=== PATIENT | female | born 1985 | race Two or more races ===

== ENCOUNTER → 2018-11-02 | Outpatient (CLI) | payer SELFPAY ==
--- NOTE | 2018-11-02 16:32 | RADIOLOGY REPORT (SQ) ---
EXAM DESCRIPTION: U/S [id number] TRNABD 1GES W/ODOP COMPLETED DATE/TIME: 11/02/2018 3:39 pm REASON FOR STUDY: Z34.81 ENCOUNTER FOR SUPRVSN OF NORMAL , FIRST TRIMESTER Z34.81 ENCOUNTE R FOR SUPRVSN OF NORMAL , FIRST TRIM COMPARISON: None. TECHNIQUE: Transabdominal static and realtime grayscale images acquired of the pelvis. Additional se lected spectral and color Doppler images recorded. All images stored on PACs. bHCG: Not available. CLINICAL DATES: 7 weeks 4 days LIMITATIONS: None. FINDINGS: FETUS: Single Living intrauterine . ULTRASOUND EGA: 12 weeks 3 days ULTRASOUND BLANKA: 05/14/2019 EFW: Not applicable less than 20 weeks. CRL: 5.9 cm FHR: 153 beats per minute. SURVEY: No visualized anomalies. AMNIOTIC FLUID: Adequate amount. PLACENTA: Not yet developed due to early gestation. SUBCHORIONIC BLEED: No. SIZE OF BLEED: Not applicable. UTERUS: No masses. No anomalies. CERVICAL LENGTH: 3.3 cm. Closed. RIGHT ADNEXA: Ovary not identified due to poor acoustical window. No adnexal free fluid. No adnexal masses. LEFT ADNEXA: Ovary not identified due to poor acoustical window. No adnexal free fluid. No adnexal masses. FREE FLUID: None. OTHER: No other significant finding. IMPRESSION: LIVING INTRAUTERINE . EGA 12 weeks 3 days Trimester of : First - 0 to 13 weeks. TECHNICAL DOCUMENTATION: JOB ID: [id number] [employer]- All Rights Reserved rev Reading location - IP/workstation name: [email or web address]
== END ==
LOC: RAD 14:45
PROVIDERS: ATTEND Midwife
DX: Z34.81 Encounter for supervision of other normal pregnancy, first trimester (principal)
CPT/HCPCS: 76801

== ENCOUNTER → 2018-12-20 | Outpatient (CLI) | payer SELFPAY ==
--- NOTE | 2018-12-20 15:15 | RADIOLOGY REPORT (SQ) ---
EXAM DESCRIPTION: U/S OB 14+ TRNABD 1GES W/O DOP COMPLETED DATE/TIME: 12/20/2018 2:56 pm REASON FOR STUDY: ENCTR FOR SUPERVISION OF OTHER NORMAL 2ND TRIMESTER (Z34.82) Z34.82 ENC OUNTER FOR SUPRVSN OF NORMAL , SECOND TRI 19 weeks 2 days by dates. COMPARISON: 11/02/2018 TECHNIQUE: Static and Dynamic grayscale imaging performed of gravid uterus using transabdominal appr oach. Additional selected color Doppler and spectral images recorded. All stored on PACS. LIMITATIONS: None. FINDINGS: FETUSES SEEN:1 EGA: 19 weeks 3 days. Calculated using BPD,FL,HC,AC documented on images. No discrepancy with clinic al dates. BLANKA: 05/13/2019 EFW: 301 grams PERCENTILE: 39th LOLITA: 5.5 cm. PLACENTA: Anterior grade 1 PRESENTATION: Cephalic. ANATOMY: HEART RATE: 141 beats per minute. FOUR CHAMBER HEART: Visualized. THREE VESSEL CORD: Yes. CORD INSERTION: Visualized. KIDNEYS AND BLADDER: Visualized. Appear normal. STOMACH: Visualized. Appears normal. SPINE: Normal as visualized. BRAIN AND LATERAL VENTRICLES: Visualized. Appear normal. OTHER: No other significant finding. MATERNAL ADNEXA: Maternal ovaries not visualized. CERVICAL LENGTH: 3.17 cm. Closed. OTHER: No other significant finding. IMPRESSION: LIVING INTRAUTERINE . ESTIMATED GESTATIONAL AGE 19 weeks 3 days NO VISUALIZED ANOMALIES. Trimester of : Second trimester - 13 weeks 1 day to 27 weeks 6 days. TECHNICAL DOCUMENTATION: JOB ID: [id number] [employer]- All Rights Reserved Reading location - IP/workstation name: [email or web address]
== END ==
LOC: RAD 13:49
PROVIDERS: ATTEND Midwife
DX: Z34.82 Encounter for supervision of other normal pregnancy, second trimester (principal)
CPT/HCPCS: 76805

== ENCOUNTER 2019-05-19 15:56 | Inpatient (IN) | payer SELFPAY ==
--- NOTE | 2019-05-19 16:26 | Admission Physical ---
Datetime Report Generated by CPN: 05/19/2019 16:26 CURRENT ADMISSION Hx Assessment: The History has been Reviewed and is Current Indication for Induction: Post Dates Indication for Induction- Other: Deceleration in office Admit Impression : Postterm, Intrauterine ; No Active Labor; Intact Membranes; Induction of Labor Admit Plan: Admit to Unit; Initiate Labor Induction Protocol OBSTETRICAL HISTORY EDC: 05/14/2019 00:00 : 4 Para: 3 Term: 3 : 0 SAB: 0 IAB: 0 Ectopic: 0 Livin Cesareans: 0 VBACs: 0 Multiple Births: 0 PHYSICAL EXAM General: Normal HEENT: Deferred Neurologic: Normal Thyroid: Normal Heart: Normal Lungs: Normal Breast: Deferred Back: Normal Abdomen: Normal Genitourinary Exam: Normal Extremities: Normal DTRs: Normal Pelvic Type: Not Done Physical Exam Comments: GBS neg , pelvis proven 7 pounds O+, Care at [facility], 40+5 MEMBRANES Membranes: Intact FETUS A Monitoring: External US Admit Comment: Admited from A for IOL, postdates and deceleration on NST, GBS neg, pt. had declined IOL earlier Plan: Start Pitocin, AROM, anticipate , / Dr. Nam aware of admission and POC INFORMED CONSENT Assignment: Rosy Nam MD Signature: with User ID: [email or web address] : with User ID: [email or web address]
[2019-05-19] MEDS ORDERED: RINGERS SOLUTION,LACTATED 1,000 ML IV PRN (16:33)
[2019-05-19] MEDS ORDERED: OXYTOCIN/NORMAL SALINE 20 UNIT/1,000 ML RTUINJ IV PRN ×2 (16:33→23:58)
[2019-05-19] MEDS ORDERED: RINGERS SOLUTION,LACTATED 300 ML IV ONE (16:33)
[2019-05-19] MEDS ORDERED: OXYTOCIN/NORMAL SALINE 20 UNIT/1,000 ML RTUINJ ONE (17:59)
[2019-05-19 18:40] LABS: URINE AMPHETAMINES SCREEN NEGATIVE; URINE BARBITURATES SCREEN NEGATIVE; URINE BENZODIAZEPINES SCREEN NEGATIVE; URINE COCAINE SCREEN NEGATIVE; URINE MARIJUANA (THC) SCREEN NEGATIVE; URINE METHADONE SCREEN NEGATIVE; URINE PHENCYCLIDINE SCREEN NEGATIVE
[2019-05-19 18:40] LABS: ABSOLUTE EOSINOPHILS # (AUTO) 0.1 10^3/uL (0.0-0.6); ABSOLUTE LYMPHOCYTES (AUTO) 1.9 10^3/uL (0.5-4.7); ABSOLUTE MONOCYTES (AUTO) 0.6 10^3/uL (0.1-1.4); ABSOLUTE NEUT (AUTO) 5.7 10^3/uL (1.7-8.2); BASOPHILS % (AUTO) 0.4 % (0-2); EOSINOPHILS % (AUTO) 0.8 % (0-6); HEMATOCRIT 33.1 % (36.0-47.0); HEMOGLOBIN 11.1 g/dL (12.0-15.5); LYMPHOCYTES % (AUTO) 22.5 % (13-45); MEAN CORPUSCULAR HEMOGLOBIN 24.9 pg (27.0-33.4); MEAN CORPUSCULAR HGB CONC 33.4 g/dL (32.0-36.0); MEAN CORPUSCULAR VOLUME 75 fl (80-97); MONOCYTES % (AUTO) 7.5 % (3-13); PLATELET COUNT 248 10^3/uL (150-450); RED BLOOD COUNT 4.44 10^6/uL (3.72-5.28); SEGMENTED NEUTROPHILS % (AUTO) 68.8 % (42-78); TOTAL CELLS COUNTED % (AUTO) 100 %; WHITE BLOOD COUNT 8.3 10^3/uL (4.0-10.5)
[2019-05-19] MEDS ORDERED: MISOPROSTOL 0.2 MG TABLET ONE (20:02)
[2019-05-19] MEDS ORDERED: LIDOCAINE 1% INJ-PF (10 MG/ML) 30 ML SDV ONE (20:02)
[2019-05-19] MEDS ORDERED: OXYTOCIN 10 UNIT/ML VIAL ONE (20:02)
[2019-05-19] MEDS ORDERED: NALBUPHINE HCL INJ 10 MG/1 ML AMPULE INJ ONE (22:06)
[2019-05-19] MEDS ORDERED: PROMETHAZINE HCL INJ 25 MG/1 ML VIAL IV ONE (22:07)
[2019-05-19] MEDS ORDERED: PROMETHAZINE HCL INJ 25 MG/1 ML VIAL ONE (22:11)
[2019-05-19] MEDS ORDERED: NALBUPHINE HCL INJ 10 MG/1 ML AMPULE ONE (22:11)
[2019-05-19] MEDS ORDERED: MEASLES,MUMPS&RUBELLA VACC/PF 0.5 ML VIAL SUBCUT PRN (23:58)
[2019-05-19] MEDS ORDERED: PROMETHAZINE HCL 25 MG SUPP.RECT PR PRN (23:58)
[2019-05-19] MEDS ORDERED: ZOLPIDEM TARTRATE 5 MG TABLET PO PRN (23:58)
[2019-05-19] MEDS ORDERED: BENZOCAINE/MENTHOL AEROSOL SPRAY 56 ML TOP PRN (23:58)
[2019-05-19] MEDS ORDERED: MAGNESIUM HYDROXIDE SUSP 30 ML UDCUP PO PRN (23:58)
[2019-05-19] MEDS ORDERED: DIPHENHYDRAMINE HCL 25 MG CAPSULE PO PRN (23:58)
[2019-05-19] MEDS ORDERED: ACETAMINOPHEN 650 MG SUPP.RECT PR PRN (23:58)
[2019-05-19] MEDS ORDERED: PROMETHAZINE HCL 25 MG TABLET PO PRN (23:58)
[2019-05-19] MEDS ORDERED: PSEUDOEPHEDRINE HCL 30 MG TABLET PO PRN (23:58)
[2019-05-19] MEDS ORDERED: ACETAMINOPHEN WITH CODEINE #3 TABLET PO PRN ×2 (23:58)
[2019-05-19] MEDS ORDERED: PROMETHAZINE HCL INJ 25 MG/1 ML VIAL IV PRN (23:58)
[2019-05-19] MEDS ORDERED: GLYCERIN/WITCH HAZEL LEAF 1 EACH MED..WIPE TP PRN (23:58)
[2019-05-19] MEDS ORDERED: DIBUCAINE 1% OINTMENT 28 GM TP PRN (23:58)
[2019-05-19] MEDS ORDERED: NA PHOS,M-B/NA PHOS,DI-BA (ADULT) 133 ML ENEMA PR PRN (23:58)
[2019-05-19] MEDS ORDERED: DIPH/PERTUSS(ACELL)/TETANUS VAC/PF 0.5 ML SYR (>=10YO) IM PRN (23:58)
[2019-05-20] MEDS ORDERED: FAMOTIDINE 20 MG TABLET PO ONE (00:30)
[2019-05-20] MEDS ORDERED: IBUPROFEN 800 MG TABLET ONE (01:23)
--- NOTE | 2019-05-20 02:19 | Delivery Summary ---
Del Sum A-C Datetime Report Generated by CPN: 05/20/2019 02:19 DELIVERY PERSONNEL DELIVERY PERSONNEL: [id number] Delivery Doctor:: Rosy Nam MD Labor and Delivery Nurse:: Gay Schmid RNelectrical installation inspector Nurse:: Meredith Negrete RN Nursing Home Social Worker/HOSPITALITY AMBASSADOR: Deborah Green, ST MATERNAL INFORMATION Delivery Anesthesia: None Medications After Delivery: Pitocin Drip 20 Units/1000ml NSS Estimated Blood Loss (ml): 150 Delivery QBL: 150 Delivery QBL Comment: delivery 150 recovery 126 total 276 Maternal Complications: None LABOR SUMMARY EDC: 05/14/2019 00:00 No. Babies in Womb: 1 Attempted: No Labor Anesthesia: IV Sedation LABOR INFORMATION Reason for Induction: Post Dates Onset of Labor: 05/19/2019 18:01 Complete Dilatation: 05/19/2019 22:32 Oxytocin: Induction Group B Beta Strep: NEGATIVE Antibiotics # of Doses: 0 Steroids Given: None Reason Steroids Not Administered: Not Applicable MEMBRANES Membranes Rupture Method: Artificial Rupture of Membranes: 05/19/2019 20:25 Length of Rupture (hr): 3.25 Amniotic Fluid Color: Clear Amniotic Fluid Amount: Small Amniotic Fluid Odor: Normal STAGES OF LABOR Stage 1 hr: 4 Stage 1 min: 31 Stage 2 hr: 1 Stage 2 min: 8 Stage 3 hr: 24 Stage 3 min: 3 Total Time in Labor hr: 29 Total Time in Labor min: 42 VAGINAL DELIVERY Episiotomy: None Laceration #1: None Laceration Extension #1: N/A Laceration Repair: Not Applicable Sponge Count Correct: Yes Sharps Count Correct: Yes CSECTION DELIVERY Primary Indication: N/A Secondary Indication: N/A CSection Incidence: N/A Labor: N/A Elective: N/A CSection Incision: N/A BABY A INFORMATION Delivery Date/Time: 05/19/2019 23:40 Method of Delivery: Vaginal Born in Route : No : N/A Forceps: N/A Vacuum Extraction: N/A Shoulder Dystocia : No PRESENTATION/POSITION BABY A Presentation: Cephalic Cephalic Presentation: Vertex Breech Presentation: N/A PLACENTA INFORMATION BABY A Placenta Delivery Time : 05/20/2019 23:43 Placenta Method of Delivery: Spontaneous Placenta Status: Delivered SCORES BABY A Heart Rate 1 min: >100 bpm Resp Effort 1 min: Good Cry Reflex Irritability 1 min: Cough or Sneeze or Pulls Away Muscle Tone 1 min: Active Motion Color 1 min: Blue/Pale SCORE 1 MIN: 8 Heart Rate 5 min: >100 bpm Resp Effort 5 min: Good Cry Reflex Irritability 5 min: Cough or Sneeze or Pulls Away Muscle Tone 5 min: Active Motion Color 5 min: Body [place], Extremities Blue SCORE 5 MIN: 9 INFORMATION BABY A Gestational Age at Delivery: 40.5 Gestational Status: Full Term- 39- 40.6 Weeks Outcome : Liveborn Infant Condition : Stable Sex: Male IDENTIFICATION BABY A Infant Verification Date/Time: 05/19/2019 23:46 ID Band Number: [id number] RN Verifying : Luz Diego RN Additional Verifying Personnel: Faisal MerSILVESTRE estrada WEIGHT/LENGTH BABY A Infant Birthweight (gm): 2895 Weight (lb): 6 Weight (oz): 6 Length (in): 19.50 Infant Length (cm): 49.53 CORD INFORMATION BABY A No. Cord Vessels: 3 Nuchal Cord : N/A Cord Blood Taken: Yes-For Eval (Mom's Blood Type - or O+) Suction: None ASSESSMENT BABY A Infant Complications: None Physical Findings at Delivery: Within Normal Limits Physical Findings- Other: see initial nursery assessment Infant Respirations: Appears Normal Production Service Manager/ALS Called : No Care By: Kim Kayleyvaldez, SILVESTRE Transferred To: [facility] BABY B INFORMATION : N/A SIGNATURES Signature: with User ID: [email or web address]
[2019-05-20] MEDS ORDERED: IBUPROFEN 800 MG TABLET PO SCH (06:00)
[2019-05-20 06:45] LABS: HEMATOCRIT 29.8 % (36.0-47.0); HEMOGLOBIN 9.8 g/dL (12.0-15.5); MEAN CORPUSCULAR HEMOGLOBIN 24.6 pg (27.0-33.4); MEAN CORPUSCULAR HGB CONC 32.9 g/dL (32.0-36.0); MEAN CORPUSCULAR VOLUME 75 fl (80-97); PLATELET COUNT 198 10^3/uL (150-450); RED BLOOD COUNT 3.98 10^6/uL (3.72-5.28); RED CELL DISTRIBUTION WIDTH 18.6 % (11.5-14.0); WHITE BLOOD COUNT 13.7 10^3/uL (4.0-10.5)
[2019-05-20] MEDS: SENNOSIDES/DOCUSATE 8.6-50 MG 1 EACH TABLET PO SCH (09:19)
[2019-05-20] MEDS: FERROUS SULFATE 325 MG TABLET PO SCH ×2 (09:19→17:26)
[2019-05-20] MEDS: FAMOTIDINE 20 MG TABLET PO SCH ×2 (09:19→21:11)
[2019-05-20] MEDS: PRENATAL VITAMIN W DHA CAPSULE PO SCH (09:19)
[2019-05-20] MEDS: DOCUSATE SODIUM 100 MG CAPSULE PO SCH ×2 (09:19→17:26)
--- NOTE | 2019-05-20 09:41 | PDOC PROGRESS REPORT ---
Subjective-OB Progress Note for:: 05/20/19 Subjective: Doing well, OOB to BR, hsb at BS, breast/bottle feeding, scant lochia Physical Exam (OB) Vital Signs: Temp Pulse Resp BP Pulse Ox 98.0 F 54 L 16 96/55 L 96 05/20/19 07:47 05/20/19 07:47 05/20/19 07:47 05/20/19 07:47 05/20/19 07:47 Intake & Output 05/19/19 05/20/19 05/21/19 06:59 06:59 06:59 Intake Total 240 Balance 240 Weight 75.3 kg Objective-Diagnostic Laboratory: 05/20/19 06:13 05/19/19 05/19/19 05/20/19 18:26 18:26 06:13 WBC 8.3 13.7 H RBC 4.44 3.98 Hgb 11.1 L 9.8 L Hct 33.1 L 29.8 L MCV 75 L 75 L MCH 24.9 L 24.6 L MCHC 33.4 32.9 RDW 18.0 H 18.6 H Plt Count 248 198 Seg Neutrophils % 68.8 Blood Type O POSITIVE Antibody Screen NEGATIVE Assessment and Plan(PN) - Assessment and Plan (1) Vaginal delivery Is this a current diagnosis for this admission?: Yes - Time Spent with Patient Time with patient: Less than 15 minutes Medications reviewed and adjusted accordingly: Yes - Disposition Anticipated Discharge: Home Within: within 24 hours
[2019-05-20] MEDS: IBUPROFEN 800 MG TABLET PO SCH ×2 (10:04→17:26)
[2019-05-21] MEDS: IBUPROFEN 800 MG TABLET PO SCH ×2 (06:24→10:51)
[2019-05-21 07:44] VITALS: BP 109/69
[2019-05-21] MEDS: DOCUSATE SODIUM 100 MG CAPSULE PO SCH (09:12)
[2019-05-21] MEDS: PRENATAL VITAMIN W DHA CAPSULE PO SCH (09:12)
[2019-05-21] MEDS: FERROUS SULFATE 325 MG TABLET PO SCH (09:12)
[2019-05-21] MEDS: SENNOSIDES/DOCUSATE 8.6-50 MG 1 EACH TABLET PO SCH (09:12)
[2019-05-21] MEDS: FAMOTIDINE 20 MG TABLET PO SCH (09:12)
--- NOTE | 2019-05-21 09:45 | PDOC PROGRESS REPORT ---
Subjective-OB Progress Note for:: 05/21/19 Subjective: Doing well, wants to go jordana but baby is jaundiced. , voiding, ambulating Physical Exam (OB) Vital Signs: Temp Pulse Resp BP Pulse Ox 97.7 F 62 18 98/61 L 100 05/21/19 07:35 05/21/19 07:35 05/21/19 07:35 05/21/19 07:35 05/21/19 07:35 Intake & Output 05/20/19 05/21/19 05/22/19 06:59 06:59 06:59 Intake Total 240 Balance 240 Weight 75.3 kg - PIH/Pre-Eclampsia Clonus: Negative Headache: Absent Epigastric Pain: No Visual Changes: No - Lochia Lochia Amount: Small 10-25 ml Lochia Color: Rubra/Red - Abdomen Description: Soft Hernia Present: No Fundal Description: Firm, Midline Fundal Height: u/u - u/2 Objective-Diagnostic Laboratory: 05/20/19 06:13 Assessment and Plan(PN) - Assessment and Plan (1) Vaginal delivery Is this a current diagnosis for this admission?: Yes (2) Encounter for induction of labor Is this a current diagnosis for this admission?: Yes - Time Spent with Patient Time with patient: Less than 15 minutes Medications reviewed and adjusted accordingly: Yes - Disposition Anticipated Discharge: Home Within: within 24 hours
--- NOTE | 2019-05-21 09:51 | PDOC DISCHARGE SUMMARY ---
Impression - Admit/DC Date/PCP Admission Date/Primary Care Provider: 05/19/19 15:56 Discharge Date: 05/21/19 - Discharge Diagnosis (1) Vaginal delivery Is this a current diagnosis for this admission?: Yes (2) Encounter for induction of labor Is this a current diagnosis for this admission?: Yes - Additional Information Resuscitation Status: Full Code Discharge Diet: Regular Discharge Activity: Activity As Tolerated, No Lifting Over 10 Pounds, No Lifting/Push/Pulling, No tub bath Referrals: SREE PINTO MD [ACTIVE STAFF] - ([facility] 4 weeks or [facility]) Home Medications: Pnv No.95/Ferrous Fum/Folic AC [ Vitamin Tablet] 1 each PO DAILY 05/19/19 HPI Gestational Age: 40.5 Reason(s) for Admission: Induction of Labor Admission Note: post dates Procedures: NST, Ultrasound Intrapartum Procedure(s): Spontaneous Vaginal Delivery - boy, 12/23, baby staying for bili lites and mom will stay for nesting Hospital Course Hospital Course: routine Results Laboratory Results: WBC 13.7 10^3/uL (4.0-10.5) H 05/20/19 06:13 RBC 3.98 10^6/uL (3.72-5.28) 05/20/19 06:13 Hgb 9.8 g/dL (12.0-15.5) L 05/20/19 06:13 Hct 29.8 % (36.0-47.0) L 05/20/19 06:13 MCV 75 fl (80-97) L 05/20/19 06:13 MCH 24.6 pg (27.0-33.4) L 05/20/19 06:13 MCHC 32.9 g/dL (32.0-36.0) 05/20/19 06:13 RDW 18.6 % (11.5-14.0) H 05/20/19 06:13 Plt Count 198 10^3/uL (150-450) 05/20/19 06:13 Lymph % (Auto) 22.5 % (13-45) 05/19/19 18:26 [place] % (Auto) 7.5 % (3-13) 05/19/19 18:26 Eos % (Auto) 0.8 % (0-6) 05/19/19 18:26 Baso % (Auto) 0.4 % (0-2) 05/19/19 18:26 Absolute Neuts (auto) 5.7 10^3/uL (1.7-8.2) 05/19/19 18:26 Absolute Lymphs (auto) 1.9 10^3/uL (0.5-4.7) 05/19/19 18:26 Absolute Monos (auto) 0.6 10^3/uL (0.1-1.4) 05/19/19 18:26 Absolute Eos (auto) 0.1 10^3/uL (0.0-0.6) 05/19/19 18:26 Absolute Basos (auto) 0.0 10^3/uL (0.0-0.2) 05/19/19 18:26 Seg Neutrophils % 68.8 % (42-78) 05/19/19 18:26 Urine Opiates Screen NEGATIVE 05/19/19 17:54 Urine Methadone Screen NEGATIVE 05/19/19 17:54 Ur Barbiturates Screen NEGATIVE 05/19/19 17:54 Ur Phencyclidine Scrn NEGATIVE 05/19/19 17:54 Ur Amphetamines Screen NEGATIVE 05/19/19 17:54 U Benzodiazepines Scrn NEGATIVE 05/19/19 17:54 Urine Cocaine Screen NEGATIVE 05/19/19 17:54 U Marijuana (THC) Screen NEGATIVE 05/19/19 17:54 Blood Type O POSITIVE 05/19/19 18:26 Antibody Screen NEGATIVE 05/19/19 18:26 Plan Health Concerns: routine Plan of Treatment: routine, breastfeed Goals: no complications Time Spent: Less than 30 Minutes
== END 2019-05-21 11:15 | disposition home or self-care (01) | DRG 807 ==
LOC: LR 15:56 → 2S 05-20 02:03
PROVIDERS: ADMIT Obstetrics & Gynecology; ATTEND Obstetrics & Gynecology
PROC: 10E0XZZ Delivery of Products of Conception, External Approach (ICD-10-PCS; principal; 2019-05-19)
PROC: 3E033VJ Introduction of Other Hormone into Peripheral Vein, Percutaneous Approach (ICD-10-PCS; 2019-05-19)
PROC: 10907ZC Drainage of Amniotic Fluid, Therapeutic from Products of Conception, Via Natural or Artificial Opening (ICD-10-PCS; 2019-05-19)
DX: O76 Abnormality in fetal heart rate and rhythm complicating labor and delivery (principal); Z37.0 Single live birth; O48.0 Post-term pregnancy; Z3A.40 40 weeks gestation of pregnancy
CPT/HCPCS: 36415; 80307; 85025; 85027; 86592; 86850; 86900; 86901; J2300; J2550; J2590; J3490